=== PATIENT | male | born 1955 | race Caucasian/White ===

== ENCOUNTER 2017-08-31 20:14 | Emergency (ER) | payer SELFPAY ==
[~2017-08-31] VITALS: Ht 172.7 cm; Wt 84.0 kg
[~2017-08-31 20:14] MED LIST: PRED20 PO; RANI300T PO; Z.0.NO CURRENT MEDS; ZYRT10TA12 PO
[2017-08-31 20:30] VITALS: BP 152/92; PULSE 104; RESP 18; O2SAT 95
[2017-08-31 20:34] VITALS: BP 152/92; PULSE 104; RESP 18; TEMP 98.4; O2SAT 95
[2017-08-31] MEDS ORDERED: TETANUS/DIPHTHERIA TOXOID ADULT 0.5 ML VIAL IM ONE (20:45)
--- NOTE | 2017-08-31 20:51 | PD ---
HPI Chief Complaint: Laceration/Skin Injury Time Seen by Provider: 20:41 Travel History International Travel<30 days: No Contact w/Intl Traveler<30days: No Traveled to known affect area: No History of Present Illness HPI 61-year-old male patient presents to the ER today, has been drinking, fell onto the fireplace and has a laceration over the left eyebrow. He denies any loss of consciousness. He denies any other injuries. He is quite agitated in the ER , is trying to remove his own c-collar. Modifying Factors: None Associated Signs & Symptoms: Fall, alcohol intoxication, left eyebrow laceration , head injury Risk Factors: None PFSH Past Medical History Medical History: Denies Significant Hx ?: Not Past Surgical History Surgical History: No Previous Surgery Social History Alcohol Use: Yes (2-3 DRINKS PER DAY) Tobacco Use: Yes (2 PPD X 34 YEARS) Substance Use: No Allergies-Medications (Allergen,Severity, Reaction): Coded Allergies: No Known Allergies (Verified Allergy, Mild, 08/31/17) Reported Meds & Prescriptions Reported Meds & Active Scripts Active Review of Systems Except as stated in HPI: all other systems reviewed are Neg Physical Exam Narrative GENERAL: Well-developed elderly male patient currently in mild distress, agitated, but awake and oriented 3. SKIN: Focused skin assessment warm/dry. HEAD: There is a 3 cm laceration over the left eyebrow. Normocephalic. EYES: Pupils equal and round. No scleral icterus. No injection or drainage. ENT: No nasal bleeding or discharge. Mucous membranes pink and moist. NECK: Trachea midline. No JVD. c-collar fairly loose but appears to be in place. CARDIOVASCULAR: Regular rate and rhythm. No murmur appreciated. RESPIRATORY: No accessory muscle use. Clear to auscultation. Breath sounds equal bilaterally. GASTROINTESTINAL: Abdomen soft, non-tender, nondistended. Hepatic and splenic margins not palpable. MUSCULOSKELETAL: No obvious deformities. No clubbing. No cyanosis. No edema. NEUROLOGICAL: Awake and alert. No obvious cranial nerve deficits. Motor grossly within normal limits. Slurred speech. PSYCHIATRIC: Agitated mood and affect; insight and judgment poor. Data Data Last Documented VS Vital Signs Date Time Temp Pulse Resp B/P (MAP) Pulse Ox O2 Delivery O2 Flow Rate FiO2 08/31/17 22:42 97 18 114/71 (85) 98 Room Air 08/31/17 20:[address] Brain W/O Iv Contrast(Rout) (08/31/17 20:41) Ct Cerv Spine W/O Contrast (08/31/17 20:41) Tetanus/Diphtheria Tox Adult (Tetanus/Di (08/31/17 20:45) Lorazepam Inj (Ativan Inj) (08/31/17 21:30) Haloperidol Inj (Haldol Inj) (08/31/17 21:30) Lidocaine 1% Inj (50 Ml) (Xylocaine 1% I (08/31/17 22:15) Lidocaine Pf 1% Inj (Xylocaine-Mpf 1% In (08/31/17 22:19) MDM Medical Decision Making Medical Screen Exam Complete: Yes Emergency Medical Condition: Yes Medical Record Reviewed: Yes Differential Diagnosis Fall, left eyebrow laceration, head injury: Rule out intracranial injuries Narrative Course Laceration was sutured in the ER by me. Patient was given Haldol and Ativan in the ER to calm him down. Marchman act was placed on the patient because he is fairly disoriented and agitated at this point, too intoxicated to make his own decisions. CAT scan ordered to rule out intracranial injuries. Patient ending up patient was so agitated he ended up removing his own c-collar. Planning to let him sleep it off and await CAT scan findings. Procedures Procedure Narrative Ad laceration note LACERATION LOCATION: Left eyebrow LENGTH: 3 cm NUMBER OF STITCHES/CURTIS: 6 REPAIR: The area of the laceration was prepped with Betadine and sterilely draped. The laceration was infiltrated with 3 cc of 1% lidocaine. The wound was copiously irrigated and explored without evidence of foreign body, tendon injury or neurovascular injury. The wound was closed using 3.0 0 Vicryl. This was a single layer repair. A sterile dressing was applied. The patient was advised to keep the dressing clean and dry. Patient tolerated the procedure well. Physician Communication Physician Communication Case is signed out at [address] Pfeiffer pending CAT scan results. Disposition based on CAT scan results. He will sleep it off. If negative, he can be released with responsible family members. Diagnosis Primary Impression: Eyebrow laceration Additional Impression: Head injury Condition: Stable Soontharothai,Rewadee MD Aug 31, 2017 20:51
[2017-08-31] MEDS ORDERED: HALOPERIDOL LACTATE 5 MG/ML AMP IM ONE (21:30)
[2017-08-31] MEDS ORDERED: LORazepam 2 MG/ML VIAL IM ONE (21:30)
[2017-08-31 21:45] VITALS: BP 158/100; PULSE 107; RESP 18; O2SAT 98
[2017-08-31] MEDS ORDERED: LIDOCAINE HCL 1% 50 ML VIAL INFIL ONE (22:15)
[2017-08-31] MEDS ORDERED: LIDOCAINE HCL 1% PF 30 ML VIAL ONE (22:19)
[2017-08-31 22:42] VITALS: BP 114/71; PULSE 97; RESP 18; O2SAT 98
--- NOTE | 2017-08-31 23:20 | RADRPT ---
EXAM DATE/TIME: 08/31/2017 22:55 [facility] COMPARISON: No previous studies available for comparison. INDICATIONS : Fall, laceration superior to left eyebrow. RADIATION DOSE: 66.71 CTDIvol (mGy) MEDICAL HISTORY : None SURGICAL HISTORY : None. ENCOUNTER: Initial ACUITY: 1 day PAIN SCALE: 4/10 LOCATION: Left frontal TECHNIQUE: Multiple contiguous axial images were obtained of the head. Using automated exposure control and adj ustment of the mA and/or kV according to patient size, radiation dose was kept as low as reasonably a chievable to obtain optimal diagnostic quality images. DICOM format image data is available electro nically for review and comparison. FINDINGS: CEREBRUM: The ventricles are normal for age. No evidence of midline shift, mass lesion, hemorrhage or acute in farction. No extra-axial fluid collections are seen. POSTERIOR FOSSA: The cerebellum and brainstem are intact. The 4th ventricle is midline. The cerebellopontine angle i s unremarkable. EXTRACRANIAL: The visualized portion of the orbits is intact. SKULL: The calvaria is intact. No evidence of skull fracture. CONCLUSION: Negative noncontrast head CT. Pollo Vieyra MD on August 31, 2017 at 23:18 Board Certified Radiologist. This report was verified electronically.
--- NOTE | 2017-08-31 23:46 | RADRPT ---
EXAM DATE/TIME: 08/31/2017 22:55 [facility] COMPARISON: No previous studies available for comparison. INDICATIONS : Fall; facial laceration, neck pain. RADIATION DOSE: 26.43 CTDIvol (mGy) MEDICAL HISTORY : None SURGICAL HISTORY : None. ENCOUNTER: Initial ACUITY: 1 day PAIN SCALE: 3/10 LOCATION: Bilateral neck TECHNIQUE: Volumetric scanning of the cervical spine was performed. Multiplanar reconstructions in the sagittal, coronal and oblique axial planes were performed. Using automated exposure control and adjustment o f the mA and/or kV according to patient size, radiation dose was kept as low as reasonably achievable to obtain optimal diagnostic quality images. DICOM format image data is available electronically f or review and comparison. FINDINGS: Cervical spine alignment is normal. No fracture. Vertebral bodies have normal height. Severe disc space narrowing and apparent fusion at C5/C6. There is moderate disc space narrowing and moderate uncovertebral and facet osteoarthritis at the other levels. Perivertebral soft tissues are within normal limits. CONCLUSION: Intact cervical spine. Diffuse degenerative changes. Pollo Vieyra MD on August 31, 2017 at 23:43 Board Certified Radiologist. This report was verified electronically.
--- NOTE | 2017-09-01 00:16 | PD ---
Physical Exam Time Seen by Provider: 00:[address] Luong left this patient with me to check the results of the CT scan and make a disposition, likely discharge if the patient is cooperative. Data Data Last Documented VS Vital Signs Date Time Temp Pulse Resp B/P (MAP) Pulse Ox O2 Delivery O2 Flow Rate FiO2 08/31/17 22:42 97 18 114/71 (85) 98 Room Air 08/31/17 20:[address] Brain W/O Iv Contrast(Rout) (08/31/17 20:41) Ct Cerv Spine W/O Contrast (08/31/17 20:41) Tetanus/Diphtheria Tox Adult (Tetanus/Di (08/31/17 20:45) Lorazepam Inj (Ativan Inj) (08/31/17 21:30) Haloperidol Inj (Haldol Inj) (08/31/17 21:30) Lidocaine 1% Inj (50 Ml) (Xylocaine 1% I (08/31/17 22:15) Lidocaine Pf 1% Inj (Xylocaine-Mpf 1% In (08/31/17 22:19) MDM Medical Record Reviewed: Yes Supervised Visit with BREANNA: No Interpretation(s) The CT the brain shows no acute abnormality. Differential Diagnosis Alcohol intoxication, other drug intoxication Narrative Course The patient by history and physical exam has alcohol intoxication. He also has an eyebrow laceration. His CT of the head is negative. He has been cooperative in the last hour. Diagnosis Primary Impression: Eyebrow laceration Additional Impressions: Head injury Alcohol intoxication Referrals: NO PRIMARY CARE PHYSICIAN (PCP) call for appointment Patient Instructions: General Instructions, Facial Laceration (ED) Departure Forms: Tests/Procedures Disposition: 01 DISCHARGE HOME Condition: Stable Roshan Pfeiffer MD Sep 01, 2017 00:16
[2017-09-01 00:29] VITALS: BP 110/61
== END 2017-09-01 00:29 | disposition home or self-care (01) ==
LOC: PHED 20:14
DX: S01.112A Laceration without foreign body of left eyelid and periocular area, initial encounter (principal); S09.90XA Unspecified injury of head, initial encounter; W01.198A Fall on same level from slipping, tripping and stumbling with subsequent striking against other object, initial encounter; F10.129 Alcohol abuse with intoxication, unspecified; Z23 Encounter for immunization
CPT/HCPCS: 12013; 70450; 72125; 90471; 90714; 96372; 99283; J1630; J2060

== ENCOUNTER 2017-09-11 11:29 | Emergency (ER) | payer SELFPAY ==
[~2017-09-11] VITALS: Ht 177.8 cm; Wt 93.6 kg
[2017-09-11 11:36] VITALS: BP 163/92; PULSE 82; RESP 16; TEMP 98.8; O2SAT 95
--- NOTE | 2017-09-11 12:33 | PD ---
HPI Chief Complaint: Wound/Suture/Staple Re-Check Time Seen by Provider: 12:06 Travel History International Travel<30 days: No Contact w/Intl Traveler<30days: No Traveled to known affect area: No History of Present Illness HPI The patient is a 62-year-old male who presents to the emergency department for removal of stitches above the left eye. The patient had his stitches placed 1 week ago Sunday, states they have been in place approximately 10 days. He states there is been no difficulty with healing, no drainage, redness, or tenderness of the affected area. He states his tetanus shot is up- to-date. Symptoms are mild to nonexistent. PFSH Past Medical History Medical History: Denies Significant Hx Tetanus Vaccination: < 5 Years Influenza Vaccination: No Past Surgical History Surgical History: No Previous Surgery Social History Alcohol Use: Yes (2-3 DRINKS PER DAY) Tobacco Use: Yes (/ ppd) Substance Use: No Allergies-Medications (Allergen,Severity, Reaction): Coded Allergies: No Known Allergies (Verified Allergy, Mild, 09/11/17) Reported Meds & Prescriptions Reported Meds & Active Scripts Active Review of Systems Eyes: No: Blurred Vision HENT: No: Headaches, Lightheadedness Skin: Positive Other (Sutures above the left eye without erythema or drainage) Neurologic: No: Focal Abnormalities, Headache Physical Exam Narrative GENERAL: Awake, alert, pleasant 62-year-old male who appears his stated age and is in no acute respiratory distress. SKIN: Focused skin assessment warm/dry. HEAD: Sutures in place above the left eyebrow in a diagonal fashion. Small amount of crusting around the sutures but no erythema or drainage noted. EYES: Pupils equal and round. 3 mm bilateral and reactive. EOMs are intact. Patient is able to see fingers at a distance of 2 feet without difficulty.. ENT: No nasal bleeding or discharge. Mucous membranes pink and moist. NECK: Trachea midline. No JVD. t palpable. MUSCULOSKELETAL: No obvious deformities. No clubbing. No cyanosis. No edema. NEUROLOGICAL: Awake and alert. No obvious cranial nerve deficits. Motor grossly within normal limits. Normal speech. Nonfocal. PSYCHIATRIC: Appropriate mood and affect; insight and judgment normal. Data Data Last Documented VS Vital Signs Date Time Temp Pulse Resp B/P (MAP) Pulse Ox O2 Delivery O2 Flow Rate FiO2 09/11/17 11:36 98.8 82 16 163/92 (115) 95 Orders Orders Wound Care (09/11/17 12:25) MDM Medical Decision Making Medical Screen Exam Complete: Yes Emergency Medical Condition: Yes Medical Record Reviewed: Yes Differential Diagnosis Differential diagnosis includes suture removal, wound recheck, dehiscence, cellulitis, abscess. Narrative Course Physical examination of the suture area appears a small amount of crusting but no erythema, fluctuance, or drainage. The sutures were removed. The patient is advised to apply Polysporin of the affected area, wound care instructions. He states his tetanus shot is up-to-date. Return if symptoms worsen or progress. Diagnosis Primary Impression: Visit for suture removal Patient Instructions: General Instructions Additional Instructions: Polysporin twice a day. Wound care instructions. Follow-up with her primary physician. Return if symptoms worsen or progress. Disposition: 01 DISCHARGE HOME Condition: Stable Patrick Garg MD Sep 11, 2017 12:33
== END 2017-09-11 12:46 | disposition home or self-care (01) ==
LOC: PHED 11:29 → PHEFT 12:46
DX: Z48.02 Encounter for removal of sutures (principal)
CPT/HCPCS: 99281